=== PATIENT | female | born 1980 | race Two or more races ===

== ENCOUNTER 2022-04-10 09:06 | Emergency (ER) | payer OTHER ==
[~2022-04-10] VITALS: Ht 165.1 cm; Wt 78.9 kg
[2022-04-10] MEDS ORDERED: AMOX-CLAV 875-1 EACH PO (09:47)
== END 2022-04-10 09:53 | disposition home or self-care (01) ==
LOC: ER 09:06
DX: J06.9 Acute upper respiratory infection, unspecified (principal); H10.10 Acute atopic conjunctivitis, unspecified eye